=== PATIENT | female | born 1960 | race Two or more races ===

== ENCOUNTER 2020-01-06 16:10 | Outpatient (CLI) | payer OTHER | END 2020-01-06 17:20 | disposition home or self-care (01) | LOC: OFIC 805 16:10 | PROVIDERS: ATTEND Otolaryngology Otology & Neurotology | DX: G47.39 Other sleep apnea (principal); R06.83 Snoring; E66.8 Other obesity ==

== ENCOUNTER → 2025-01-15 08:16 | Outpatient (CLI) | payer OTHER | END | disposition home or self-care (01) | LOC: NUCLEAR 07:00 | PROVIDERS: ATTEND Internal Medicine | DX: E04.2 Nontoxic multinodular goiter (principal) | CPT/HCPCS: 78013; A9512 ==